=== PATIENT | male | born 1965 | race Caucasian/White ===

== ENCOUNTER 2016-11-26 20:36 | Emergency (ER) | payer OTHER ==
[~2016-11-26] VITALS: Ht 188 cm; Wt 85.2 kg
--- NOTE | ~2016-11-26 | ER ---
PATIENT'S NAME: AMARJIT BISWAS [facility] AGE: 51 Y [address] ROOM: [place], [place] [address] LOCATION: ED ADMIT DATE: 11/26/2016 ER/Outpatient Report DISCHARGE DATE: FAMILY PHYSICIAN: Uriel Jay MD ATTENDING PHYSICIAN: Jed Jones Time of Arrival: 2220 hours. Time of Evaluation: 2220 hours. CHIEF COMPLAINT: Food bolus. HISTORY OF PRESENT ILLNESS: The patient states at approximately 1800 hours tonight, he was eating chicken fried steak when it got lodged as he swallowed it. He said that he choked, coughed, was feeling short of breath at that time. After he coughed a couple times, he did feel as though it moved. He was able to breathe easier and able to swallow, but he still felt a lump in his throat and did not feel like he could get it to pass. He did go to [facility] and was evaluated there. They referred him here for care of Dr. Spangler. The patient denies being ill prior to this episode. He has not had a cough, cold, congestion, or runny nose. Denies having any chest pain at this time. He states he can still feel the food bolus. It does not feel full or as thick as it was initially, but could tell it is still there. Denies having any past history of difficulty swallowing. ALLERGIES: LEVAQUIN, CODEINE, AND PENICILLIN. CURRENT MEDICATIONS: On his chart and reviewed by me. PAST MEDICAL HISTORY: Hyperlipidemia, GERD, and recently had a sinus infection. SOCIAL HISTORY: He lives in [place] with his . He does smoke a pack per day and has for the last 30+ years. Denies use of drugs. Drinks alcohol on a social basis. ROS: All negative other than those mentioned in the HPI. PHYSICAL EXAMINATION: VITAL SIGNS: Blood pressure was 145/94; pulse of 82; respirations 16; temperature of 96.7, tympanic; and O2 saturation is 99% on room air. PATIENT'S NAME: AMARJIT BISWAS [facility] AGE: 51 Y [address] ROOM: [place], [place] [address] LOCATION: ED ADMIT DATE: 11/26/2016 ER/Outpatient Report DISCHARGE DATE: FAMILY PHYSICIAN: Uriel Jay MD ATTENDING PHYSICIAN: Jed Jones GENERAL: He is awake, alert, and oriented x4. SKIN: [place], warm, and dry. RESPIRATIONS: Even and nonlabored. Oropharynx is clear. NECK: Supple. No lymphadenopathy. LUNGS: Lung sounds are clear throughout. HEART: Regular rate and rhythm. ABDOMEN: Soft, nondistended. Bowel sounds are present. EMERGENCY DEPARTMENT COURSE: The patient arrived per [facility]. He ambulated from the ambulance bay to the ENT room. He did not have any dizziness or lightheadedness with that activity. Dr. Spangler was contacted regarding the patient. The patient does have a saline lock in the left antecubital area that was placed in [place]. Dr. Spangler came and evaluated the patient. He will take the patient to do an endoscopic exam. IMPRESSION: Food bolus. PLAN: The patient to go to the endoscope room for further evaluation with Dr. Spangler. The patient and his are familiar with the plan of care. ARON JACK APRN FOR MD TISH VICTOR/modl /[id number] d: 11/27/16 0204 t: 11/27/16 1825, OUTPATIENT REPORT
[2016-11-26] MEDS ORDERED: TRICOR145 MG PO (23:32)
[2016-11-26] MEDS ORDERED: ZOCOR40 MG PO (23:33)
[2016-11-26] MEDS ORDERED: BENADRYL25 MG PO (23:34)
[2016-11-26] MEDS ORDERED: PRILOSEC20 MG PO (23:34)
[2016-11-26] MEDS ORDERED: DELTASONE5 MG PO (23:36)
[2017-01-14] MEDS ORDERED: FLEXERIL10 MG PO (09:04)
[2017-01-14] MEDS ORDERED: SUDAFED30 MG PO (09:04)
== END 2016-11-27 02:16 | disposition disaster alternative care site (69) ==
LOC: GMED 20:36
PROC: 0DB98ZX Excision of Duodenum, Via Natural or Artificial Opening Endoscopic, Diagnostic (ICD-10-PCS; principal; 2016-11-26)
DX: T17.928A Food in respiratory tract, part unspecified causing other injury, initial encounter (principal); E78.5 Hyperlipidemia, unspecified; K21.9 Gastro-esophageal reflux disease without esophagitis; Z88.0 Allergy status to penicillin; F17.210 Nicotine dependence, cigarettes, uncomplicated
CPT/HCPCS: J7030

== ENCOUNTER → 2017-01-22 | Day surgery (SDC) | payer OTHER ==
[~2017-01-22] VITALS: Ht 188 cm; Wt 80.8 kg
[~2017-01-22] MED LIST: BENADRYL25 MG PO; DELTASONE5 MG PO; FLEXERIL10 MG PO; PRILOSEC20 MG PO; SUDAFED30 MG PO; TRICOR145 MG PO; ZOCOR40 MG PO
--- NOTE | ~2017-01-22 | OR ---
PATIENT'S NAME: AMARJIT BISWAS [facility] AGE: 51 Y [address] ROOM: [place] [id number] LOCATION: GEND ADMIT DATE: 01/22/2017 OR/Procedure Report DISCHARGE DATE: FAMILY PHYSICIAN: Uriel Jay MD ATTENDING PHYSICIAN: RANDY POTTS SURGEON: Leslie Taylor MD ASSISTANT HEAD CASHIER: DATE OF PROCEDURE: 01/22/2017 ADDENDUM: This is an addendum to the colonoscopy note. Incidental note was also made of internal hemorrhoids on retroflexion in the rectum. No active bleeding noted. RECOMMENDATIONS: Topical therapy for hemorrhoids p.r.n. LESLIE TAYLOR MD AAN/modl /[id number] d: 01/22/17 0958 t: 01/22/17 1558, OPERATIVE SUMMARY
== END | disposition disaster alternative care site (69) ==
LOC: GPOC 01-14 10:00 → GEND 07:18 → GPOC 10:00
PROC: 0DBK8ZX Excision of Ascending Colon, Via Natural or Artificial Opening Endoscopic, Diagnostic (ICD-10-PCS; principal; 2017-01-22)
PROC: 0DBN8ZX Excision of Sigmoid Colon, Via Natural or Artificial Opening Endoscopic, Diagnostic (ICD-10-PCS; 2017-01-22)
PROC: 0DBP8ZX Excision of Rectum, Via Natural or Artificial Opening Endoscopic, Diagnostic (ICD-10-PCS; 2017-01-22)
DX: Z12.11 Encounter for screening for malignant neoplasm of colon (principal); K63.5 Polyp of colon; K62.1 Rectal polyp; K64.8 Other hemorrhoids; K21.9 Gastro-esophageal reflux disease without esophagitis; E78.5 Hyperlipidemia, unspecified; Z88.0 Allergy status to penicillin; Z88.1 Allergy status to other antibiotic agents; Z88.5 Allergy status to narcotic agent
CPT/HCPCS: J2001; J7030